=== PATIENT | female | born 1995 | race Caucasian/White ===

== ENCOUNTER 2022-07-13 15:36 | Emergency (ER) | payer BC ==
[~2022-07-13] VITALS: Ht 157 cm; Wt 90.6 kg
[2022-07-13 15:52] VITALS: BP 139/58
--- NOTE | 2022-07-13 16:03 | ED GI ---
General Chief Complaint: Abdominal/GI Problems Stated Complaint: 25 WKS , SHARP PAIN IN LOW ABD Nursing Triage Note: Patient has presented to ER with cc or intermittant, sharp, lower abd pain for the last week. The pain has been more constant today. She has an OB appointment on 07/20/22. She has taken tyelnol for her pain. No pain upon arrival to the ER. She denies any injury on any other complaint. Source of Information: Patient Exam Limitations: No Limitations History of Present Illness Date Seen by Provider: Jul 13, 2022 Time Seen by Provider: 15:41 Initial Comments 26-year-old female presents to the emergency department today for sharp pain in her lower abdomen. She is 25 weeks , G4, P2. She sees Dr. Hale who is out of town. She called their clinic and was recommended to be evaluated in the emergency department. She has no vaginal bleeding. Symptoms have been off and on for about a week but were more intense today. Is described as intermittent, random sharp stabbing pains in her suprapubic region. They last for 4 to 5 seconds and spontaneously resolved. She denies any fevers chills nausea or vomiting. She has been feeling baby move normally. Urinary symptoms. No changes in her bowels. Allergies and Home Medications Patient Home Medication List Home Medication List Reviewed: Yes Review of Systems Review of Systems Constitutional: no symptoms reported EENTM: No Symptoms Reported Respiratory: No Symptoms Reported Cardiovascular: No Symptoms Reported Gastrointestinal: Abdominal Pain Genitourinary: No Symptoms Reported Musculoskeletal: no symptoms reported Skin: no symptoms reported Psychiatric/Neurological: No Symptoms Reported Endocrine: No Symptoms Reported Hematologic/Lymphatic: No Symptoms Reported Past Wuirvjs-Iviyfx-Lkqhbr Hx Patient Social History Tobacco Use?: No Use of E-Cig and/or Vaping dev: No Substance use?: No Alcohol Use?: No Family Medical History Reviewed Nursing Family Hx No Pertinent Family Hx Physical Exam Vital Signs Vital Signs - First Documented 07/13/22 15:52 Temp 36.2 Pulse 90 Resp 18 B/P (MAP) 139/58 (85) Pulse Ox 97 O2 Delivery Room Air Capillary Refill : Height/Weight/BMI Height: '" Weight: lbs. oz. kg; 36.00 BMI Method: General Appearance: WD/WN, no apparent distress HEENT: normal ENT inspection, TMs normal, pharynx normal Neck: non-tender, full range of motion, supple, normal inspection Respiratory: chest non-tender, lungs clear, normal breath sounds, no respiratory distress, no accessory muscle use Cardiovascular: regular rate, rhythm, no edema, no gallop, no JVD, no murmur Gastrointestinal: normal bowel sounds, non tender, soft, no organomegaly, no pulsatile mass, other (Abdomen is normal for gestational age) Extremities: normal range of motion, non-tender, normal inspection, no pedal edema, no calf tenderness, normal capillary refill Back: normal inspection, no CVA tenderness, no vertebral tenderness Neurologic/Psychiatric: alert, normal mood/affect, oriented x 3 Skin: normal color, warm/dry Lymphatic: no adenopathy Progress/Results/Core Measures Results/Orders Lab Results Laboratory Tests Test 07/13/22 16:05 Range/Units Urine Color YELLOW Urine Clarity CLOUDY H Urine pH 6.0 5-9 Urine Specific Newell >=1.030 1.016-1.022 Urine Protein 1+ H NEGATIVE Urine Glucose (UA) NEGATIVE NEGATIVE Urine Ketones NEGATIVE NEGATIVE Urine Nitrite NEGATIVE NEGATIVE Urine Bilirubin NEGATIVE NEGATIVE Urine Urobilinogen 1.0 < = 1.0 MG/DL Urine Leukocyte Esterase NEGATIVE NEGATIVE Urine RBC (Auto) NEGATIVE NEGATIVE Urine RBC NONE /HPF Urine WBC 2-5 /HPF Urine Squamous Epithelial Cells >50 H /HPF Urine Crystals NONE /LPF Urine Bacteria LARGE H /HPF Urine Casts NONE /LPF Urine Mucus SMALL H /LPF Urine Culture Indicated NO My Orders Orders - CAITLIN DELGADO DO Ua Culture If Indicated (07/13/22 15:53) Vital Signs/I&O 07/13/22 15:52 Temp 36.2 Pulse 90 Resp 18 B/P (MAP) 139/58 (85) Pulse Ox 97 O2 Delivery Room Air Blood Pressure Mean: 85 Departure Communication (Admissions) heart tones 147. She has no pain on exam today. Have been intermittent off and on for the last week or so. She has not been able to see Dr. Hale as she is out of the office. No vaginal bleeding or discharge. No urinary sympto ms. Urine checked here today and has significant contamination. Will await cultures to see if needs treated as she is not having urinary symptoms. Impression Primary Impression: Abdominal pain affecting Disposition: 01 HOME, SELF-CARE Condition: Stable Departure-Patient Inst. Add. Discharge Instructions: Unfortunately we do not have ultrasound availability here. I recommend you follow-up with your associate media director's office as soon as possible, especially should your symptoms persist. Return to the emergency department immediately if you develop any vaginal bleeding or severe pains. It is a good sign that you are still feeling baby move and heart tones are normal which is also encouraging. Please follow-up with your primary doctor for any nonemergent needs. All discharge instructions reviewed with patient and/or family. Voiced understanding. CAITLIN DELGADO DO Jul 13, 2022 16:03
[2022-07-13 16:14] LABS: BILIRUBIN,URINE NEGATIVE (NEGATIVE); COLOR,URINE YELLOW; GLUCOSE, URINE (UA) NEGATIVE (NEGATIVE); KETONES,URINE NEGATIVE (NEGATIVE); LEUKOCYTE ESTERASE ,URINE NEGATIVE (NEGATIVE); NITRITE,URINE NEGATIVE (NEGATIVE); PROTEIN,URINE 1+ (NEGATIVE)
[2022-07-13 16:24] LABS: CLARITY,URINE CLOUDY
[2022-07-13 16:25] LABS: BACTERIA,URINE LARGE /HPF
[2022-07-13 16:26] LABS: SQUAMOUS EPITHELIAL CELL,UR >50 /HPF
== END 2022-07-13 16:40 | disposition home or self-care (01) ==
LOC: ER FS 15:42
DX: O26.892 Other specified pregnancy related conditions, second trimester (principal); R10.30 Lower abdominal pain, unspecified; Z3A.25 25 weeks gestation of pregnancy
CPT/HCPCS: 81000

== ENCOUNTER 2022-10-10 12:20 | Outpatient (CLI) | payer BC, MEDICAID ==
[~2022-10-10] VITALS: Ht 157.5 cm; Wt 91.5 kg
[2022-10-10] MEDS ORDERED: RT-ALBUINH INH (12:52)
== END 2022-10-10 13:00 ==
LOC: PREOP 12:20
PROVIDERS: ATTEND Obstetrics & Gynecology
DX: Z01.818 Encounter for other preprocedural examination (principal)

== ENCOUNTER 2022-10-20 05:07 | Inpatient (IN) | payer BC, MEDICAID ==
[2022-10-20] VITALS (25 sets, daily range): BP systolic 74–123; BP diastolic 41–71
[~2022-10-20] VITALS: Ht 162 cm; Wt 92.0 kg
[~2022-10-20 05:07] MED LIST: RT-ALBUINH INH
--- OUTSIDE RECORDS SUMMARY | 2022-10-20 05:09 | XMS REPORT ---
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 confirmed 38201484 Problem Acute cystitis without hematuria N30.00 conf irmed [id number] Problem Allergic rhinitis, unspecified seasonality, unspecifie d trigger J30.9 confirmed 48403158 Problem Reactive depression F32.9 confirmed [id number] Problem Other chronic pain G89.29 confirmed 8 [id number] ALLERGIES Allergen (clinical drug ingredient) Drug/Non Drug Allergy do cumented on EMR Reaction Allergy Type Onset Date Status Vaccine product containing Bordetella pertussis antige n (medicinal product) Pertussis Vaccines Unknown Drug Allergy Active ENCOUNTERS from 1993 to 2022-09-14 Encounter Location Date Provider [facility] [address] [id number] [address] Sep, WILL Small Pain in right ankle and joints of right foot M25.571 ; Other chronic pain G89.29 ; Swelling of lower leg M79.89 and Reactive depression F32.9 IMMUNIZATIONS Vaccine Route Administration Date Status Influenza (split), preservative free, 6-35 months Unknown May 07, 2004 Administered DTP Unknown January 13, 1999 Administered Influenza, seasonal, injectable, 6-35 months Unknown Jul 03, 2012 Administered Influenza (split), preservative free, 6-35 months Unknown Apr 16, 2008 Administered Influenza (split), preservative free, 6-35 months Unknown Apr 12, 2007 Administered menactra mcv-4 (history) Unknown Jan 29, 2007 Adminis tered OPV Unknown January 13, 1999 Administered PRIVATE TDAP (ADACEL) Unknown Apr 07, 2010 Administer ed PRIVATE TDAP (BOOSTRIX) IM Intramuscular August 17, 2022 Adminis tered mmr-II (history) Unknown January 13, 1999 Administered mmr-II (history) Unknown Apr 05, 2014 Administered COVID-19 Moderna (history) Unknown October 28, 2020 Admin istered COVID-19 Moderna (history) Unknown November 24, 2020 Admin istered gardasil-4 (history) Unknown August 28, 2007 Administere d SOCIAL HISTORY Sex Assigned At : Social History Observation Description Sex Assigned At Female Alcohol Screen (Audit-C) Question Answer Notes Did you have a drink containing alcohol in the past year? No Points 0 Interpretation Negative PHQ2 Question Answer Notes In the last 2 weeks, how often have you had little interest or pleasure in doing things? Not at all In the last 2 weeks, how often have you been feeling down, depressed, or hopeless? Not at all Total PHQ2 Score 0 REASON FOR REFERRAL No Information VITAL SIGNS Height 62.5 in Sep, Height-cm 158.75 cm Sep, Weight 196 lbs Sep, Weight-kg 88.9 kg Sep, Temperature 97.5 degrees Fahrenheit Sep, Heart Rate 92 bpm Sep, Respiratory Rate 18 bpm Sep, Oximetry 95 % Sep, BMI 35.27 kg/m2 Sep, Blood pressure systolic 120 mmHg Sep, Blood pressure diastolic 62 mmHg Sep, MEDICATIONS Medication SIG (Take, Route, Frequency, Duration) Notes Start Da te End Date Status Amoxicillin-Pot Clavulanate 875-125 MG 1 tablet Orally every 12 hrs for 10 days Please voucher Aug, Active 28-0.8 mg 1 tablet Orally Once a day for 30 day(s) Nov, Active PROCEDURES from 1993 to 2022-09-14 Procedure Date Ordered Date Performed Result Body Site ROUTINE VENIPUNCTURE 2020-09-28 N/A RESULTS No Results REASON FOR VISIT Swollen ankle-retaining water? /// "Since Monday, my right leg has been really swollen and tingly" "My left leg has been a little swollen but not as bad as the right", "Feet hurt as well" Darek DAVEY MEDICAL (GENERAL) HISTORY Type Description Date Medical History scoliosis Medical History tuberous sclerosis of heart and brain Medical History asthma Surgical History section x 2 Hospitalization History see surgeries Goals Section No Information Health Concerns No Information MEDICAL EQUIPMENT No Information MENTAL STATUS No Information FUNCTIONAL STATUS No Information ASSESSMENTS Encounter Date Diagnosis Assessment Notes Treatment Notes Treatm ent Clinical Notes Sep, Pain in right ankle and joints of right foot (ICD-10 - M25.571) Sep, Other chronic pain (ICD-10 - G89.29) Sep, Swelling of lower leg (ICD-10 - M79.89) Sep, Reactive depression (ICD-10 - F32.9) Grieving the recent loss of her mother offered referral or trial of medication. At this time she declines but will call if she changes her mind PLAN OF TREATMENT Medication Medication Name Sig Start Date Stop Date Amoxicillin-Pot Clavulanate 875-125 MG 1 tablet Orally every 12 hrs for 10 days Aug, Treatment Notes Assessment Notes Clinical Notes Reactive depression Grieving the recent loss of her mother offered referral or trial of medication. At this time she declines but will call if she changes her mind Next Appt Details prn Reason:swelling/ leg pain Provider Name:KYA CHERRY, 2022-09-19 09 :00:00 AM, [address] [place] [address], [id number], [id number], Provider Name:KYA CHERRY, 2022-10-05 09 :00:00 AM, [address] [place] [address], [id number], Provider Name:KYA CHERRY, 2022-10-12 09 :00:00 AM, [address] [place] [address], [id number], Follow Up:prnswelling/ leg pain Insurance Providers Payer Name Payer Address Payer Phone Insured Name Patient Relati onship to Insured Coverage Start Date Coverage End Date Subscriber Number Group Nu mber TAMI [employer] [facility] [address] [address] [facility] [phone] Pratt,Ayneth E Self - patient is the insured [id number] [facility] [address] [place] [address] Pratt,Yaneth E Self - patient is the insured 2020 [employer] [address] [address] Attn: Accounts Payable Over [employer] [facility] [address] Pratt,Yaneth E Self - patient is the insured 2022 [place] [id number] [place] [address] Pratt,Yaneth E Self - patient is the insured 2022 [id number] RCM Missing insurance scan copy of card into pt doc Pratt,Yaneth E Self - patient is the insured [id number] [facility] [address] [facility] [address] Pratt,Yaneth E Self - patient is the insured 2022 MEDICATIONS ADMINISTERED Medication Instructions Date of Administration Dosage DEXAMETHASONE 4MG/ML (PER 1 ML) Apr, 1 mL DEPO MEDROL 80 MG/ML Apr, 1 mL
--- OUTSIDE RECORDS SUMMARY | 2022-10-20 05:09 | XMS REPORT | Clinical Summary ---
Author Author [facility] Organization [facility] Address Unknown Phone Unavailable Care Team Providers Care Trainer Name Role Phone Chong Miller MD PCP Source Comments Some departments are not documenting in the electronic medical record. If you d o not see the information that you expected, contact Release of Information in [facility] [employer] Information Management department at [phone] for further assistan ce in locating additional records.[facility] Allergies Comments Active Allergy Reactions Severity Noted Date Pertussis Vaccines PALPITATIONS Low 04/11/2017 Medications End Date Status Medication Sig Dispensed Refills Start Date Active ALBUTEROL IN Inhale by 0 mouth into the lungs. Active Problems No known active problems Surgical History Surgery Date Site/Laterality Comments SECTION CARDIAC SURGERY 1993 Medical History Medical History Date Comments Tuberous sclerosis syndrome (HCC) Asthma Heart abnormality Social History Date Tobacco Use Types Packs/Day Years Used Smoking Tobacco: Never Smokeless Tobacco: Never Comments Alcohol Use Standard Drinks/Week No 0 (1 standard drink = 0.6 o z pure alcohol) Sex Assigned at Date Recorded Not on file Obstetrics History Last Filed Vital Signs Reading Time Taken Comments Vital Sign 123/66 05/30/2017 11:37 AM OUTSOLE HANDLER Blood Pressure 85 05/30/2017 11:37 AM OUTSOLE HANDLER Pulse - - Temperature 16 05/30/2017 11:37 AM OUTSOLE HANDLER Respiratory Rate 99% 05/30/2017 11:37 AM OUTSOLE HANDLER Oxygen Saturation - - Inhaled Oxygen Concentration 72.6 kg (160 lb) 05/30/2017 11:37 AM OUTSOLE HANDLER Weight 157.5 cm (5' 2") 05/30/2017 11:37 AM OUTSOLE HANDLER Height 29.26 05/30/2017 11:37 AM OUTSOLE HANDLER Body Mass Index Plan of Treatment Health Maintenance Due Date Last Done Comments COVID-19 VACCINE (#1) 02/08/1994 HIV SCREENING 2008 DTAP/TDAP VACCINES (1 - 2011 Tdap) HEPATITIS C SCREENING 2011 PHYSICAL (COMPREHENSIVE) 2011 EXAM CERVICAL CANCER SCREENING 2014 DEPRESSION SCREENING 06/19/2022 INFLUENZA VACCINE (Season 03/19/2023 Ended) PNEUMOCOCCAL VACCINE 0-64 Aged Out No longer el igible based on patient's age to YRS complete this topic Results Not on filefrom Last 3 Months Care Teams Start Date End Date Trainer Relationship Specialty 04/11/17 Chong Miller MD PCP - General Pediatrics [address] [place] [address]
[2022-10-20] MEDS ORDERED: ceFAZolin INJECTION 2,000 MG in NS (IVPB) 50 ML IV ONE ×2 (05:15→18:00)
[2022-10-20] MEDS ORDERED: ceFAZolin INJECTION 2,000 MG ONE (05:29)
[2022-10-20] MEDS ORDERED: CITRIC ACID/SOB CIT (BICITRA) 30 ML UDC ONE (05:29)
[2022-10-20] MEDS ORDERED: FAMOTIDINE 20MG/2ML IV (PEPCID) IV ONE (05:30)
[2022-10-20] MEDS ORDERED: NS (IVPB) 100 ML ONE (05:30)
[2022-10-20] MEDS ORDERED: METOCLOPRAMIDE INJ 10 MG/2 ML (REGLAN) ONE (05:30)
[2022-10-20] MEDS ORDERED: CATHETER FLUSH 10 ML SYR IV PRN (05:30)
[2022-10-20] MEDS ORDERED: METOCLOPRAMIDE INJ 10 MG/2 ML (REGLAN) IV ONE (05:30)
[2022-10-20] MEDS ORDERED: FAMOTIDINE 20MG/2ML IV (PEPCID) ONE (05:30)
[2022-10-20] MEDS ORDERED: CITRIC ACID/SOB CIT (BICITRA) 30 ML UDC PO ONE (05:30)
[2022-10-20 05:51] LABS: HEMATOCRIT 34 % (35-52); HEMOGLOBIN 11.4 g/dL (11.5-16.0); MEAN CORPUSCULAR HGB CONC 33 g/dL (32-36)
[2022-10-20 05:53] LABS: BASOPHILS % (AUTO) 0 % (0-10); EOSINOPHILS # (AUTO) 0.1 10^3/uL (0.0-0.3); EOSINOPHILS % (AUTO) 1 % (0-10); LYMPHOCYTES # (AUTO) 2.2 10^3/uL (1.0-4.0); LYMPHOCYTES % (AUTO) 20 % (12-44); MEAN CORPUSCULAR HEMOGLOBIN 31 pg (25-34); MEAN CORPUSCULAR VOLUME 93 fL (80-99); MEAN PLATELET VOLUME 12.2 fL (9.0-12.2); MONOCYTES # (AUTO) 0.7 10^3/uL (0.0-1.0); MONOCYTES % (AUTO) 6 % (0-12); NEUTROPHILS # (AUTO) 7.9 10^3/uL (1.8-7.8); NEUTROPHILS % (AUTO) 71 % (42-75); PLATELET COUNT 113 10^3/uL (130-400); WHITE BLOOD COUNT 11.1 10^3/uL (4.3-11.0)
[2022-10-20] MEDS: LACTATED RINGERS 1,000 ML IV PRN ×4 (05:56→07:50)
--- NOTE | 2022-10-20 06:11 | History & Physical-OB ---
BASSAM COON 10/20/22 0611: OB - Chief Complaint & HPI Date/Time Date of Admission: Date of Admission: October 20, 2022 at 05:07 Date seen by a Provider: October 20, 2022 Time Seen by a Provider: 07:00 Chief Complaint/History OB-Reason for Admission/Chief: Section Hx : 4 Hx Para: 2 Expected Date of Delivery: October 26, 2022 Gestational Age in Weeks: 39 Gestational Age in Days: 2 Indication for : desires repeat Admission Nurse Assessment Rev: Yes Allergies and Home Medications Allergies Coded Allergies: Pertussis Vaccines (Verified Allergy, Unknown, 10/20/22) tetanus and diphtheria toxoids (Verified Allergy, Unknown, 10/20/22) Patient Home Medication List Home Medication List Reviewed: Yes Albuterol Sulfate (Ventolin Hfa) 1 Puff Puff, 2 PUFF INH Q4H, (Reported) Entered as Reported by: NADIR RODRIGUEZ on 10/10/22 1252 OB - History Hx of Present Care: Yes Ultrasounds: Normal mid trimester US Obstetrical Complications: None Medical Complications: Neurological (Tuberous sclerosis of heart and brain) Information Induced Hypertension: No Maternal Gestational Diabetes: No Hemorrhage: No Obstetrical History Hx : 4 Hx Para: 2 Hx # Term Pregnancies: 2 Number of Living Children: 2 Hx Total # of Abortions (Spona: 1 Hx Multiple Gestation: No Hx Ectopic : No Hx Stillbirth: No Hx Complication: No Hx Induced Hypertens: No Hx Maternal Gestational Diabet: No Hx Hemorrhage: No Delivery History Hx Dystocia: No Hx Forceps Assisted Delivery: No Hx Vacuum Extraction Assisted: No Hx Placenta Abnormality: No Hx Distress: No Hx Large For Gestational Age I: No Hx Small for Gestational Age I: No Hx Section: Yes Hx Vaginal Delivery Post C-Sec: No Hx Blood Disorders: No Adverse Rxn to Tranfusion: No Social History/Family History Alcohol Use: Denies Use Recreational Drug Use: No Smoking Cessation: Never smoker 2nd Hand Smoke Exposure: No Immunizations Influenza Vaccine Up-to-Date: No; Not Current First/Initial COVID19 Vaccine: 2021 Second COVID19 Vaccination: 2021 Tetanus Booster (TDap): Unknown Rubella: immune RPR/VDRL: Negative GBS Status: Unknown (Allergic to TDap vaccine) HBsAG: Negative OB - Admission Exam Physical Exam Vitals: Vital Signs 10/20/22 06:01 Temp 35.9 Pulse 76 Resp 18 Pulse Ox 99 O2 Delivery Room Air Heart: Rhythm Normal (Murmur noted) Lungs: Clear Abdomen: Gravid Extremities: Edema Reflexes: Normal Membranes: Intact Labs Laboratory Tests Test 10/20/22 05:43 Range/Units White Blood Count 11.1 H 4.3-11.0 10^3/uL Red Blood Count 3.68 L 3.80-5.11 10^6/uL Hemoglobin 11.4 L 11.5-16.0 g/dL Hematocrit 34 L 35-52 % Mean Corpuscular Volume 93 80-99 fL Mean Corpuscular Hemoglobin 31 25-34 pg Mean Corpuscular Hemoglobin Concent 33 32-36 g/dL Red Cell Distribution Width 14.5 10.0-14.5 % Platelet Count 113 L 130-400 10^3/uL Mean Platelet Volume 12.2 9.0-12.2 fL Immature Granulocyte % (Auto) 1 % Neutrophils (%) (Auto) 71 42-75 % Lymphocytes (%) (Auto) 20 12-44 % Monocytes (%) (Auto) 6 0-12 % Eosinophils (%) (Auto) 1 0-10 % Basophils (%) (Auto) 0 0-10 % Neutrophils # (Auto) 7.9 H 1.8-7.8 10^3/uL Lymphocytes # (Auto) 2.2 1.0-4.0 10^3/uL Monocytes # (Auto) 0.7 0.0-1.0 10^3/uL Eosinophils # (Auto) 0.1 0.0-0.3 10^3/uL Basophils # (Auto) 0.0 0.0-0.1 10^3/uL Immature Granulocyte # (Auto) 0.1 0.0-0.1 10^3/uL Percent Immature Platelet Fraction 17.0 H 0.0-7.6 % OB - Assessment/Plan/Diagnosis Assessment Assessment: section Admission Dx Repeat section Admission Status: Inpatient Order (span 2 midnights) Reason for Inpatient Admission: Repeat section Plan Plan: Section FATIMAHJESUS Gurwinder DO 10/20/22 0723: Allergies and Home Medications Allergies Coded Allergies: Pertussis Vaccines (Verified Allergy, Unknown, 10/20/22) tetanus and diphtheria toxoids (Verified Allergy, Unknown, 10/20/22) Patient Home Medication List Albuterol Sulfate (Ventolin Hfa) 1 Puff Puff, 2 PUFF INH Q4H, (Reported) Entered as Reported by: NADIR RODRIGUEZ on 10/10/22 1262 OB - History Patient Past Medical History nc OB - Assessment/Plan/Diagnosis Plan Other Plan Verification and Attestation of Medical Student E/M Service A medical student performed and documented this service in my presence. I reviewed and verified all information documented by the medical student and made modifications to such information, when appropriate. I personally performed the physical exam and medical decision making. eJsus Sheridan October 20, 2022,07:22 BASSAM COON October 20, 2022 06:11 JESUS SHERIDAN DO October 20, 2022 07:23
[2022-10-20] MEDS ORDERED: fentaNYL INJ 100 MCG/2 ML AMP ONE (06:53)
[2022-10-20] MEDS ORDERED: KETOROLAC 30 MG/ML VIAL ONE (06:53)
[2022-10-20] MEDS ORDERED: ONDANSETRON 4 MG/2 ML (SDV) Z0FRAN ONE ×2 (06:53→08:09)
[2022-10-20] MEDS ORDERED: OXYTOCIN PRE-MIX DRIP 1,000 ML IV ONE (06:53)
[2022-10-20] MEDS ORDERED: PHENYLEPHRINE 100 MCG/ML 10 ML (ANESTHESIA) SYR ONE (07:35)
[2022-10-20] MEDS ORDERED: BUPIVACAINE 0.25% 10 ML (SENSORCAINE) VIAL ONE (07:44)
[2022-10-20] MEDS ORDERED: ONDANSETRON 4 MG/2 ML (SDV) Z0FRAN IVP PRN (07:45)
[2022-10-20] MEDS ORDERED: NALOXONE 0.4 MG/ML 1 ML (NARCAN) VIAL IV PRN ×3 (07:45→12:00)
[2022-10-20] MEDS ORDERED: KETOROLAC 30 MG/ML VIAL IV SCH (07:45)
[2022-10-20] MEDS ORDERED: MEASLES,MUMPS,RUBELLA 1 EA INJ SC SCH (07:45)
[2022-10-20] MEDS ORDERED: METHYLERGONOVINE 0.2 MG/ML (METHERGINE) AMP ONE ×2 (07:50→08:04)
[2022-10-20] MEDS ORDERED: CARBOPROST (HEMABATE) 250 MCG/ML AMP IM ONE (07:52)
[2022-10-20] MEDS ORDERED: diphenhydrAMINE 50 MG/ML INJ (BENADRYL) ONE (08:09)
[2022-10-20 08:56] LABS: HEMATOCRIT 31 % (35-52); HEMOGLOBIN 10.1 g/dL (11.5-16.0); MEAN CORPUSCULAR HGB CONC 33 g/dL (32-36); MEAN PLATELET VOLUME 11.6 fL (9.0-12.2)
[2022-10-20 08:58] LABS: BASOPHILS % (AUTO) 0 % (0-10); EOSINOPHILS % (AUTO) 0 % (0-10); LYMPHOCYTES # (AUTO) 1.6 10^3/uL (1.0-4.0); LYMPHOCYTES % (AUTO) 14 % (12-44); MEAN CORPUSCULAR HEMOGLOBIN 31 pg (25-34); MEAN CORPUSCULAR VOLUME 94 fL (80-99); MONOCYTES # (AUTO) 0.7 10^3/uL (0.0-1.0); MONOCYTES % (AUTO) 6 % (0-12); NEUTROPHILS # (AUTO) 9.4 10^3/uL (1.8-7.8); NEUTROPHILS % (AUTO) 80 % (42-75); PLATELET COUNT 91 10^3/uL (130-400); WHITE BLOOD COUNT 11.8 10^3/uL (4.3-11.0)
[2022-10-20 08:59] LABS: SMEAR SCAN COMMENT YES
[2022-10-20] MEDS: DOCUSATE SODIUM 100 MG (COLACE) CAP PO SCH ×2 (09:00→21:14)
[2022-10-20 09:14] LABS: INR 1.1 (0.8-1.4); PROTHROMBIN TIME PATIENT 15.1 SEC (12.2-14.7)
[2022-10-20] MEDS: OXYTOCIN PRE-MIX DRIP 500 ML IV SCH ×2 (10:32→14:02)
[2022-10-20] MEDS ORDERED: METOCLOPRAMIDE INJ 10 MG/2 ML (REGLAN) IV PRN (12:00)
[2022-10-20] MEDS ORDERED: diphenhydrAMINE 50 MG/ML INJ (BENADRYL) IV PRN (12:00)
[2022-10-20] MEDS ORDERED: ONDANSETRON 4 MG/2 ML (SDV) Z0FRAN IV PRN (12:00)
[2022-10-20] MEDS ORDERED: METHYLERGONOVINE 0.2 MG (MEHTERGINE) TAB PO ONE (12:50)
[2022-10-20] MEDS: METHYLERGONOVINE 0.2 MG (MEHTERGINE) TAB PO SCH ×2 (12:53→21:07)
[2022-10-20 12:56] LABS: HEMOGLOBIN 8.6 g/dL (11.5-16.0)
[2022-10-20] MEDS ORDERED: TRANEXAMIC ACID 100 MG/ML 10 ML INJECTION IV ONE (13:00)
[2022-10-20] MEDS ORDERED: NS IV 500 ML 500 ML IV SCH ×2 (13:15)
[2022-10-20] MEDS: HYDROcodone/APAP 5 MG/325 MG (LORTAB) TAB PO PRN ×2 (13:46→19:49)
[2022-10-20] MEDS: FERROUS SULF 325 MG (IRON) TAB PO SCH ×2 (13:46→19:48)
[2022-10-20] MEDS ORDERED: CATHETER FLUSH 10 ML SYR IV SCH (14:00)
[2022-10-20] MEDS: HYDROmorphone 2 MG/ML VIAL (DILAUDID) IV PRN ×2 (14:59→23:04)
[2022-10-20 20:45] LABS: HEMOGLOBIN 8.8 g/dL (11.5-16.0)
[2022-10-20 20:47] LABS: BASOPHILS % (AUTO) 0 % (0-10); HEMATOCRIT 26 % (35-52); LYMPHOCYTES % (AUTO) 8 % (12-44); MEAN CORPUSCULAR HEMOGLOBIN 32 pg (25-34); MEAN CORPUSCULAR HGB CONC 34 g/dL (32-36); MEAN CORPUSCULAR VOLUME 93 fL (80-99); MEAN PLATELET VOLUME 12.2 fL (9.0-12.2); MONOCYTES # (AUTO) 1.2 10^3/uL (0.0-1.0); MONOCYTES % (AUTO) 6 % (0-12); PLATELET COUNT 68 10^3/uL (130-400); WHITE BLOOD COUNT 20.4 10^3/uL (4.3-11.0)
--- NOTE | 2022-10-20 21:07 | OPERATIVE REPORT ---
PREOPERATIVE DIAGNOSES: 1. A 27-year-old female at 39 weeks' gestation. 2. macrosomia. 3. Uterine atony POSTOPERATIVE DIAGNOSES: 1. A 27-year-old female at 39 weeks' gestation. 2. macrosomia. 3. Uterine atony. 4. hemorrhage. SURGEON: Jesus Rodriguez DO ANESTHESIA: Spinal. PROCEDURE: Repeat low transverse section. ESTIMATED BLOOD LOSS: 2000 mL URINE OUTPUT: 200 mL FLUIDS: 2000 mL of lactated Ringer's solution. FINDINGS: A live female infant weighing 10 pounds even, Apgars of 8 and 9. Grossly normal appearing uterus, bilateral fallopian tubes and ovaries with significant uterine atony. SPECIMEN SENT: Placenta. INDICATIONS FOR PROCEDURE: This 27-year-old female is the patient who had sought care with Dr Hale at the [facility]. Her was uncomplicated with the exception of suspicion for macrosomia. She did desire repeat . So we scheduled her for a repeat at 39 weeks. Risks of the procedure were discussed with the patient in detail and after all of her questions were answered, consent was obtained, the patient was taken to the operating room. OPERATIVE DESCRIPTION IN DETAIL: Once in the operating room, spinal analgesia was administered and found to be adequate, was placed in supine position with leftward tilt, prepped and draped in normal sterile fashion where a timeout was performed. Anesthesia tested. I then made a Pfannenstiel skin incision through the previously existing scar using knife and carried to underlying fascia using Bovie cautery. The fascial incision extended laterally using Bovie cautery. The superior aspect of fascial incision was then grasped with Suzanna clamps, tented up and dissected off the underlying rectus muscles. The inferior aspect of the fascial incision was then grasped with Suaznna clamps, tented up and dissected off the underlying rectus muscles. Rectus muscles were dissected down the midline using sharp dissection, which exposed the peritoneum, which I entered bluntly and extended using blunt traction. Brock ring retractor was placed in the peritoneal incision, which offers excellent lateral sidewall retraction. I identified the lower uterine segment, found to be thinned out. I make a low transverse incision to the vesicouterine peritoneum and bluntly dissected off the lower uterine segment, creating a bladder flap. I then proceeded with my myotomy until membranes were visualized, at which point I extended the uterine incision laterally and superiorly using bandage scissors. Amniotomy was then performed using Allis clamp. Clear fluid was noted. Infant found in vertex presentation. With gentle fundal pressure, the infant's head was elevated up the incision where the head was delivered. The nares and oropharynx were bulb suctioned. Anterior and posterior shoulders were delivered. The was brought to the operative field where cords were clamped and cut and infant was handed off to waiting nurses in attendance. Cord blood was collected. Three-vessel cord with intact placenta was delivered spontaneously thereafter. IV Pitocin was initiated to facilitate uterine contraction. The uterus was then exteriorized and cleared of all endometrial clots and debris. It was extremely boggy. I have anesthesia continue to run in IV Pitocin at an accelerated rate. I also had anesthesia give 0.2 mg of Methergine IM. I then proceeded with closing the uterine incision using 0 Vicryl suture in a running locked fashion. Second layer of imbricating 0 Monocryl was placed. Excellent hemostasis was noted after doing this; however, there is still significant uterine bogginess and atony. I therefore injected the uterine fundus with 250 mcg of carboprost. At this point, 50 minutes have passed. Bleeding had slowed down somewhat. However, uterine atony was still persistent; therefore, I placed a B-Smith stitch using 0 Monocryl to compress the uterus, which does a very good job of compression. Uterine tone starts to improve. However, I have anesthesia administer one more dose of 0.2 mg of Methergine IM and have the uterus place back within the pelvis. I then copiously irrigated the pelvis using normal saline. There was no active bleeding noted from any of my dissection planes or the uterine incision itself. I covered the uterine incision using Interceed. I removed the Brock ring retractor and then proceeded to close the peritoneum using 3-0 Vicryl suture in a running fashion. The rectus muscles were reapproximated using 3-0 Vicryl suture in interrupted fashion. The fascia was reapproximated using 0 Vicryl suture in a running fashion. The skin was reapproximated using 4-0 Monocryl in a running subcuticular. Dermabond was not applied. The incision was then covered with a pressure dressing with two ABDs. Lap and sponge counts were correct at the end of the procedure. Instrument counts correct as well. Two grams Ancef were given preoperatively for infection prophylaxis. Job ID: [id number] DocumentID: [id number] Dictated Date: 10/20/2022 11:34:24 Foot Caster Date: 10/20/2022 21:05:00 Dictated By: DO SHANE CHILD
[2022-10-20 21:40] LABS: NEUTROPHILS % (AUTO) 85 % (42-75)
[2022-10-20 21:41] LABS: EOSINOPHILS % (AUTO) 0 % (0-10); LYMPHOCYTES # (AUTO) 1.7 10^3/uL (1.0-4.0); NEUTROPHILS # (AUTO) 17.4 10^3/uL (1.8-7.8)
[2022-10-20 21:42] LABS: ANISOCYTOSIS SLIGHT; BAND NEUTROPHILS 4 %; LYMPHOCYTES % (MANUAL) 5 %; MONOCYTES % (MANUAL) 5 %; NEUTROPHILS % (MANUAL) 86 %; PLATELET CLUMPS NONE SEEN; PLATELET ESTIMATE DECREASED; POIKILOCYTOSIS SLIGHT
[2022-10-21 00:35] VITALS: BP 108/53
[2022-10-21] MEDS: HYDROcodone/APAP 5 MG/325 MG (LORTAB) TAB PO PRN ×3 (02:43→20:30)
[2022-10-21 05:42] LABS: BASOPHILS % (AUTO) 0 % (0-10); EOSINOPHILS # (AUTO) 0.1 10^3/uL (0.0-0.3); EOSINOPHILS % (AUTO) 1 % (0-10); HEMATOCRIT 28 % (35-52); HEMOGLOBIN 9.8 g/dL (11.5-16.0); LYMPHOCYTES # (AUTO) 2.1 10^3/uL (1.0-4.0); LYMPHOCYTES % (AUTO) 14 % (12-44); MEAN CORPUSCULAR HEMOGLOBIN 32 pg (25-34); MEAN CORPUSCULAR HGB CONC 35 g/dL (32-36); MEAN CORPUSCULAR VOLUME 91 fL (80-99); MEAN PLATELET VOLUME 12.5 fL (9.0-12.2); MONOCYTES # (AUTO) 1.2 10^3/uL (0.0-1.0); MONOCYTES % (AUTO) 8 % (0-12); NEUTROPHILS # (AUTO) 11.9 10^3/uL (1.8-7.8); NEUTROPHILS % (AUTO) 77 % (42-75); PLATELET COUNT 68 10^3/uL (130-400); WHITE BLOOD COUNT 15.5 10^3/uL (4.3-11.0)
[2022-10-21 06:27] VITALS: BP 102/54
--- NOTE | 2022-10-21 06:42 | Postpartum Progress Note ---
BASSAM COON 10/21/22 0642: Note Note Day # 1 Subjective: Patient is without complaints. Ambulating, voiding. Tolerating a regular diet without nausea or vomiting. Normal lochia. Pain is well controlled with oral pain medications. Endorses abdominal tenderness due to frequent uterine massages. Objective: Physical Exam: General - Alert and oriented, no apparent distress Cardio - RRR, no murmurs Pulm - CTAB Abdomen - Soft, appropriately tender to palpation, non-distended, fundus firm at umbilicus Extremities - no edema, negative Robson's bilaterally Incision - Clean, dry and intact Assessment: Post- day # 1, status post section. Recovering well, hemodynamically stable hemorrhage Acute blood loss anemia Reactive leukocytosis Plan: Routine care. Encourage breast feeding. Encourage careful ambulation. Educated her about orthostatic hypotension and told her to take her time ambulating. Ferrous sulfate supplementation. Plan for discharge 10/22/2022 Vitals - Labs Vital Signs - I&O Vital Signs Date Time Temp Pulse Resp B/P (MAP) Pulse Ox O2 Delivery O2 Flow Rate FiO2 10/21/22 06:27 36.4 78 18 102/54 (70) 96 Room Air 10/21/22 00:35 36.5 77 18 108/53 (71) 96 Room Air 10/21/22 00:35 36.5 77 18 108/53 96 Room Air 10/20/22 22:31 37.1 78 18 100/53 (69) 97 Room Air 10/20/22 22:31 37.1 78 18 100/53 95 Room Air 10/20/22 22:12 37.1 83 18 114/52 97 Room Air 10/20/22 22:12 37.1 83 18 114/52 (72) 97 Room Air 10/20/22 20:00 36.6 77 18 114/51 (72) 99 Room Air 10/20/22 19:28 36.9 83 18 102/51 98 Room Air 10/20/22 19:13 37.1 82 18 105/58 97 Room Air 10/20/22 18:41 36.6 81 20 121/66 96 10/20/22 17:35 36.5 83 18 123/65 98 Room Air 10/20/22 17:04 36.2 85 18 116/60 97 Room Air 10/20/22 16:00 36.4 82 18 118/61 (80) 97 Room Air 10/20/22 14:57 36.9 79 18 97/52 97 Room Air 10/20/22 14:47 37.2 80 20 96/50 96 Room Air 10/20/22 14:39 37.1 81 20 105/54 98 Room Air 10/20/22 13:20 80 91/53 (66) 97 Room Air 10/20/22 12:50 83 90/51 (64) 96 Room Air 10/20/22 12:40 78 89/54 (66) 96 Room Air 10/20/22 12:30 74/41 (52) Room Air 10/20/22 12:25 82 79/49 (59) 97 Room Air 10/20/22 12:15 69 96/52 (67) Room Air 10/20/22 11:32 Room Air 10/20/22 09:30 36.1 74 18 106/60 (75) 100 Room Air 10/20/22 09:22 Room Air 10/20/22 09:05 36.2 14 104/71 (82) 98 Room Air 10/20/22 09:00 Room Air 10/20/22 08:55 16 105/56 (72) 99 Room Air 10/20/22 08:45 20 106/64 (78) 96 Room Air 10/20/22 08:42 Room Air 10/20/22 08:32 16 103/56 (72) 96 Room Air 10/20/22 08:28 36.8 20 103/53 (70) 98 Room Air 10/20/22 08:28 Room Air I & O 10/21/22 07:00 Intake Total 3750 ml Output Total 2925 ml Balance 825 ml Labs Laboratory Tests 10/20/22 08:48: White Blood Count 11.8H, Red Blood Count 3.24L, Hemoglobin 10.1L, Hematocrit 31L , Mean Corpuscular Volume 94, Mean Corpuscular Hemoglobin 31, Mean Corpuscular Hemoglobin Concent 33, Red Cell Distribution Width 14.5, Platelet Count 91L, Mean Platelet Volume 11.6, Immature Granulocyte % (Auto) 1, Neutrophils (%) (Auto) 80H, Lymphocytes (%) (Auto) 14, Monocytes (%) (Auto) 6, Eosinophils (%) (Auto) 0, Basophils (%) (Auto) 0, Neutrophils # (Auto) 9.4H, Lymphocytes # (Auto) 1.6, Monocytes # (Auto) 0.7, Eosinophils # (Auto) 0.0, Basophils # (Auto) 0.0, Immature Granulocyte # (Auto) 0.1, Percent Immature Platelet Fraction 15.9H , Prothrombin Time 15.1H, INR Comment 1.1, Activated Partial Thromboplast Time 31, Fibrinogen 313, Smear Scan YES 10/20/22 12:49: Hemoglobin 8.6L, Hematocrit 26L 10/20/22 20:40: White Blood Count 20.4H, Red Blood Count 2.78L, Hemoglobin 8.8L, Hematocrit 26L, Mean Corpuscular Volume 93, Mean Corpuscular Hemoglobin 32, Mean Corpuscular Hemoglobin Concent 34, Red Cell Distribution Width 14.6H, Platelet Count 68L, Mean Platelet Volume 12.2, Immature Granulocyte % (Auto) 1, Neutrophils (%) (Auto) 85H, Lymphocytes (%) (Auto) 8L, Monocytes (%) (Auto) 6, Eosinophils (%) (Auto) 0, Basophils (%) (Auto) 0, Neutrophils # (Auto) 17.4H, Lymphocytes # (Auto) 1.7, Monocytes # (Auto) 1.2H, Eosinophils # (Auto) 0.0, Basophils # (Auto) 0.0, Immature Granulocyte # (Auto) 0.1, Percent Immature Platelet Fraction 16.3H, Neutrophils % (Manual) 86, Lymphocytes % (Manual) 5, Monocytes % (Manual) 5, Band Neutrophils 4, Platelet Estimate DECREASED, Clumped Platelets NONE SEEN, Poikilocytosis SLIGHT, Anisocytosis SLIGHT 10/21/22 05:14: White Blood Count 15.5H, Red Blood Count 3.10L, Hemoglobin 9.8L, Hematocrit 28L, Mean Corpuscular Volume 91, Mean Corpuscular Hemoglobin 32, Mean Corpuscular Hemoglobin Concent 35, Red Cell Distribution Width 14.7H, Platelet Count 68L, Mean Platelet Volume 12.5H, Immature Granulocyte % (Auto) 1, Neutrophils (%) (Auto) 77H, Lymphocytes (%) (Auto) 14, Monocytes (%) (Auto) 8, Eosinophils (%) (Auto) 1, Basophils (%) (Auto) 0, Neutrophils # (Auto) 11.9H, Lymphocytes # (Auto) 2.1, Monocytes # (Auto) 1.2H, Eosinophils # (Auto) 0.1, Basophils # (Auto) 0.0, Immature Granulocyte # (Auto) 0.1, Percent Immature Platelet Fraction 18.3H MALLORIE SHERIDAN DO 10/21/22 1052: Note Note Verification and Attestation of Medical Student E/M Service Patient s/p 2 u PRBC and 1 u FFP. Stable this AM anticipate dc tomorrow. A medical student performed and documented this service in my presence. I reviewed and verified all information documented by the medical student and made modifications to such information, when appropriate. I personally performed the physical exam and medical decision making. Mallorie Sheridan, October 21, 2022,10:52 BASSAM COON October 21, 2022 06:42 MALLORIE SHERIDAN DO October 21, 2022 10:52
[2022-10-21] MEDS: DOCUSATE SODIUM 100 MG (COLACE) CAP PO SCH ×2 (09:00→20:29)
--- NOTE | 2022-10-21 09:02 | Anesthesia-Regional Post-Op ---
Regional Patient Condition Mental Status: Alert, Oriented x3 Circulation: Same as Pre-Op Headache: Absent Sensation: Full Recovery Motor Block: Absent Post Op Complications Complications None Follow Up Care/Instructions Patient Instructions None needed. Anesthesia/Patient Condition Patient is doing well, no complaints, stable vital signs, no apparent adverse anesthesia problems. No complications reported per nursing. KETAN MARADIAGA CRNA October 21, 2022 09:02
[2022-10-21 09:15] VITALS: BP 107/60
--- NOTE | 2022-10-21 10:59 | Discharge Inst-Women's Service ---
Discharge Inst-Women's Serv Depart Medication/Instructions New, Converted or Re-Newed RX: Transmitted to Pharmacy Final Diagnosis POD 2 RLTCS Acute blood loss anemia Problems Reviewed?: Yes Consults/Follow Up Additional Follow Up: Yes Orders/Referrals Dr. Rodriguez in 7-[address] Hale in 6 weeks Activity Activity: Activity as Tolerated Driving Instructions: No Driving for 1 Week NO SMOKING: NO SMOKING Nothing Inside Vagina: No Douching, No Clio, No Tampons Diet Discharge Diet: No Restrictions Symptoms to Report to : Bleeding Excessive, Pain Increased, Fever Over 101 Degrees F, Vaginal Bleeding Increase, Questions/Concerns For Any Problems or Questions: Contact Your Physician Skin/Wound Care Infection Signs and Symptoms: Increased Redness, Foul Odor of Wound, Increased Drainage, Skin Itchy or Has a Rash, Increased Swelling, Temperature Above 101 F Operative Area Clean and Dry: Keep Incision Clean/Dry Stitches/[place]/Dermabond: Dermabond, Care of Stitches Bathing Instructions: ShowMALLORIE Zuniga DO October 21, 2022 10:59 am
[2022-10-21] MEDS ORDERED: ACHD5005 PO (11:00)
[2022-10-21] MEDS ORDERED: FERR325T24 PO (11:00)
[2022-10-21] MEDS ORDERED: DOCU100C37 PO (11:00)
[2022-10-21] MEDS ORDERED: IBUP-844 PO (11:00)
[2022-10-21] MEDS: IBUPROFEN 600 MG (MOTRIN) TAB PO SCH ×3 (12:33→23:58)
[2022-10-21] MEDS: FERROUS SULF 325 MG (IRON) TAB PO SCH ×2 (12:33→18:06)
[2022-10-21 12:35] VITALS: BP 102/53
[2022-10-21 18:01] VITALS: BP 124/58
[2022-10-21 23:56] VITALS: BP 105/55
[2022-10-22 05:47] LABS: BASOPHILS % (AUTO) 0 % (0-10); EOSINOPHILS # (AUTO) 0.2 10^3/uL (0.0-0.3); EOSINOPHILS % (AUTO) 2 % (0-10); HEMATOCRIT 23 % (35-52); HEMOGLOBIN 7.8 g/dL (11.5-16.0); LYMPHOCYTES # (AUTO) 2.7 10^3/uL (1.0-4.0); LYMPHOCYTES % (AUTO) 22 % (12-44); MEAN CORPUSCULAR HEMOGLOBIN 32 pg (25-34); MEAN CORPUSCULAR HGB CONC 34 g/dL (32-36); MEAN CORPUSCULAR VOLUME 93 fL (80-99); MEAN PLATELET VOLUME 12.5 fL (9.0-12.2); MONOCYTES # (AUTO) 0.9 10^3/uL (0.0-1.0); MONOCYTES % (AUTO) 7 % (0-12); NEUTROPHILS # (AUTO) 8.5 10^3/uL (1.8-7.8); NEUTROPHILS % (AUTO) 68 % (42-75); PLATELET COUNT 74 10^3/uL (130-400); WHITE BLOOD COUNT 12.4 10^3/uL (4.3-11.0)
[2022-10-22] MEDS: IBUPROFEN 600 MG (MOTRIN) TAB PO SCH ×2 (06:05→12:09)
[2022-10-22 06:07] VITALS: BP 100/55
[2022-10-22] MEDS: DOCUSATE SODIUM 100 MG (COLACE) CAP PO SCH (09:49)
[2022-10-22] MEDS: FERROUS SULF 325 MG (IRON) TAB PO SCH (09:49)
[2022-10-22 09:51] VITALS: BP 101/51
--- NOTE | 2022-10-22 11:26 | Postpartum Progress Note ---
Note Note Day #2 Subjective: Patient is without complaints. Ambulating well, voiding. Tolerating a regular diet without nausea or vomiting. Normal lochia. Pain is well controlled with oral pain medications. Breast feeding. [] Objective: [] Physical Exam: General - Alert and oriented, no apparent distress Breasts symmetrical no erythema or engorgement Abdomen - Soft, appropriately tender to palpation, non-distended, fundus firm at umbilicus Incision site well healed. Lochia minimal Extremities - no edema, negative Robson's bilaterally Assessment: [] post- day # 2, status post delivery. Recovering well, hemodynamically stable Plan: Routine care. Encourage breast feeding. Encourage ambulation. Ferrous sulfate supplementation. Plan for discharge f/u 1wk. Vitals - Labs Vital Signs - I&O Vital Signs Date Time Temp Pulse Resp B/P (MAP) Pulse Ox O2 Delivery O2 Flow Rate FiO2 10/22/22 09:51 36.7 79 18 101/51 (68) 97 Room Air 10/22/22 06:07 36.1 74 18 100/55 (70) 96 Room Air 10/21/22 23:56 36.5 81 18 105/55 (72) 96 Room Air 10/21/22 18:01 36.7 92 18 124/58 (80) 96 Room Air 10/21/22 12:35 36.2 75 18 102/53 (69) 98 Room Air Labs Laboratory Tests 10/22/22 05:12: White Blood Count 12.4H, Red Blood Count 2.46L, Hemoglobin 7.8#L, Hematocrit 23L , Mean Corpuscular Volume 93, Mean Corpuscular Hemoglobin 32, Mean Corpuscular Hemoglobin Concent 34, Red Cell Distribution Width 15.3H, Platelet Count 74L, Mean Platelet Volume 12.5H, Immature Granulocyte % (Auto) 1, Neutrophils (%) (Auto) 68, Lymphocytes (%) (Auto) 22, Monocytes (%) (Auto) 7, Eosinophils (%) (Auto) 2, Basophils (%) (Auto) 0, Neutrophils # (Auto) 8.5H, Lymphocytes # (Auto) 2.7, Monocytes # (Auto) 0.9, Eosinophils # (Auto) 0.2, Basophils # (Auto) 0.0, Immature Granulocyte # (Auto) 0.1 Microbiology 10/20/22 MRSA Screen - Final, Complete MRSA not isolated BILL DOLAN DO October 22, 2022 11:26
== END 2022-10-22 15:00 | disposition home or self-care (01) | DRG 787 ==
LOC: LDRP 05:07 → WS 09:46
PROVIDERS: ADMIT Obstetrics & Gynecology; ATTEND Obstetrics & Gynecology
PROC: 10D00Z1 Extraction of Products of Conception, Low, Open Approach (ICD-10-PCS; principal; 2022-10-20 07:43)
DX: O34.211 Maternal care for low transverse scar from previous cesarean delivery (principal); D62 Acute posthemorrhagic anemia; O72.1 Other immediate postpartum hemorrhage; Z3A.39 39 weeks gestation of pregnancy; Z37.0 Single live birth; O90.81 Anemia of the puerperium; D72.829 Elevated white blood cell count, unspecified; O36.63X0 Maternal care for excessive fetal growth, third trimester, not applicable or unspecified
CPT/HCPCS: 36415; 85007; 85014; 85018; 85025; 85027; 85384; 85610; 85730; 86850; 86900; 86901; 86920; 87081; 94664